=== PATIENT | female | born 1965 | race Caucasian/White ===

== ENCOUNTER 2020-12-19 15:44 | Emergency (ER) | payer SELFPAY ==
[2020-12-19 16:04] VITALS: BP 121/76; PULSE 85; RESP 16; TEMP 36.4; O2SAT 97
--- NOTE | 2020-12-19 16:45 | RT.EKG_ITS ---
APPROVED REPORT Exam: Resting ECG Reason for Exam: tick borne illness Patient Location: E HR:77 bpm ECG Measurements Heart Rate 77 AXIS IL 155 P 57 QRSd 86 QRS -3 QT 391 T 40 QTc 443 Conclusion Sinus rhythm...normal P axis, V-rate 60- 99 Low voltage, extremity and precordial leads...extremity<0.5mV, precordial<1.0mV. Sinus. No STEMI. I have reviewed and interpreted ECG and agree with software generated interpretation.
--- NOTE | 2020-12-19 16:53 | W.ED.GENAD ---
Discharge Plan Disposition Patient Disposition: HOME Condition: Stable Discharge Details Clinical Impression: Tick bite of abdomen Primary Care Provider: None,None ED Provider: Ann-Marie Deras Home Meds and New Rx's Prescriptions: New doxycycline hyclate 100 mg tablet 100 mg PO BID 21 Days Qty: 42 RF: 0 Discharge Instructions Instructions: Tick Bite (ED) Additional Instructions: Your symptoms are concerning for tick born illness. Please take the Doxycycline as prescribed, even if symptoms improve, please take the entire course. We have held off on testing as it would likely be falsely negative at this time. Your EKG is without block. Please encourage hydration, Tylenol and/or ibuprofen as needed for discomfort. Please follow up with primary care in 2 weeks when you return home. If you develop any new/worsening symptoms please seek care urgently once again. Medical Decision Making Patient is a pleasant 55 year old female presenting today with concern for general aches, fatigue, chills after tick bite 10 days ago. She states she is not sure what type of tick it was, how long it was embedded. HOwever, states that it was engorged/enlarged. She states head is still embedded with some surrounding erythema. She has not had any documented fevers. Reports that she was seen at urgent care locally and no abx were started. On exam, patient appears nontoxic. Her VS are WNL. No nuchal rigidity. No nerve palsy. Lungs are clear, normal cardiac exam. She has tick bite on abdomen, small retained piece noted, appears irritated, patient states she has been digging at this. No erythema migrans. ECG was obtained to look for block, reviewed by Dr. Dhaliwal. No abnormality noted. Discussed with patient. She is too early to have blood tests be confirmatory. However, with her history, I am very concerned about tick born illness and will treat with Doxycycline. She resides in [place], is returning in 2 weeks and will f/u with PCP then. Return precautions discussed, all of her questions and concerns were addressed, she is in agreement with this plan. HPI General Mode of arrival: ambulatory. Date/Time Provider Initiated Documentation: 12/19/20 16:27. Limitations to Documentation: no limitations. Information obtained by: patient and RN notes reviewed. History of Present Illness 55 year old F presents to the emergency department with the chief complaint of body aches, fatigue, DOMINGUEZ, chills, described as mild, with intensity rated at 2. Quality is described as aching, Patient started experiencing this day(s) and it has been constant. Medication improves symptom(s), No exacerbating factors reported . Patient notes fever/chills, headaches and rash (area of irritation around tick bite); denies chest pain, cough, diaphoresis, loss of appetite, nausea/vomiting, shortness of breath and weakness. Patient did receive the following treatments prior to arrival, NSAID Related Data Home Medications Medication Instructions Recorded Confirmed doxycycline hyclate 100 mg PO BID 21 Days #42 tab 12/19/20 Previous Rx's Medication Instructions Recorded doxycycline hyclate 100 mg PO BID 21 Days #42 tab 12/19/20 Allergies Allergy/AdvReac Type Severity Reaction Status Date / Time Penicillins Allergy Unverified 12/19/20 16:10 General Stated Complaint: GenMedical STEVEN: 3 Review of Systems Constitutional Constitutional: Reports as per HPI, Reports chills, Reports fatigue and Reports headache(s) (mild DOMINGUEZ) Eyes Eyes: Denies change in vision ENT Ears, Nose, Mouth, and Throat: Denies vertigo, Reports headache(s) (mild DOMINGUEZ) and Denies disequilibrium Cardiovascular Cardiovascular: Reports as per HPI, Denies chest pain and Denies dyspnea Respiratory Respiratory: Reports as per HPI, Denies cough and Denies dyspnea Gastrointestinal Gastrointestinal: Denies abdominal pain, Denies change in bowel habits, Denies nausea and Denies vomiting Musculoskeletal Musculoskeletal: Reports myalgias Integumentary/Breasts Skin/Breast: Reports wounds (tick bite) Neurologic Neurologic: Denies abnormal movements, Denies abnormal speech, Denies confusion, Denies vertigo, Reports headache(s) (mild DOMINGUEZ), Denies localized weakness, Denies sensory deficit and Denies disequilibrium Psychiatric Psychiatric: Denies confusion Endocrine Endocrine: Reports fatigue PFSH Social History Smoking/Tobacco Use Status: Former Tobacco Use Smoking risk assessment performed?: Yes Alcohol Intake: current Alcohol Intake frequency: a few times a week Substance use type: does not use Do you feel safe at home: Yes Do you feel safe in your relationship?: Yes Exam Const General: cooperative, healthy appearing, comfortable and no acute distress Nutritional Appearance: average body habitus and well nourished Orientation: alert and awake [facility] Head: normal to inspection and normocephalic Ears: hearing grossly normal bilaterally General nose exam: external nose normal Face and sinus: normal facial exam Mouth: oral mucosae normal and lip normal Teeth and gingiva: dentition normal Eyes General: appearance normal, both eyes and all related structures Neck Neck: normal visual inspection, full ROM, no lymphadenopathy and no meningeal signs Resp Effort & Inspection: normal respiratory effort, able to speak in complete sentences and no respiratory distress Auscultation: clear to auscultation bilaterally Cardio Rate: regular rate Rhythm: regular rhythm Heart Sounds: S1 normal and S2 normal GI Abdomen image: 1. Area of tick bite with focal erythema around site of bite Skin General skin exam: no rashes or lesions noted Neuro General: patient alert, patient awake and patient oriented x3 Cranial Nerves: CN's II-XI intact bilaterally Cognition: normal cognition Speech: speech normal Gait: normal gait Psych Appearance: grossly normal and well kempt Mental Status: mental status grossly normal Speech and Movement: speech and movement normal Course Vital Signs Vital signs: Vital Signs Temperature 36.4 C L 12/19/20 16:04 Pulse 85 12/19/20 16:04 Respiratory Rate 16 12/19/20 16:04 Blood Pressure 121/76 12/19/20 16:04 Pulse Oximetry 97 12/19/20 16:04 Temperature 36.4 C L 12/19/20 16:04 Temperature Source Tympanic 12/19/20 16:04 Pulse 85 12/19/20 16:04 Respiratory Rate 16 12/19/20 16:04 Respiratory Effort Non-Labored 12/19/20 16:09 Blood Pressure 121/76 12/19/20 16:04 Blood Pressure Position Sitting 12/19/20 16:04 Pulse Oximetry 97 12/19/20 16:04 Pain Level 2 12/19/20 16:04 PAWSS Have you Been Recently Intoxicated or Drunk Within the Last 30 days?: No Have you Ever Experienced Previous Episodes of Alcohol Withdrawal?: No Have you ever Experienced Withdrawal Seizures?: No Have you ever Experienced Delirium Tremens(DT)s?: No Have you ever undergone Alcohol Rehabilitation Treatment (i.e, inpt ot outpatient treatment programs)?: No Have you ever Experienced Blackouts?: No Have you ever Combined Alcohol with other Downers within the last 90 days?: No Have you ever Combined Alcohol with any other Substance of Abuse during the last 90 days?: No Positive Blood Alcohol level on Presentation? [PCS.BAL]: No Evidence of Increased Autonomic Activity (i.e. HR>120, tremor, sweating, agitation, nausea)?: No Result: 0
[2020-12-19 17:19] VITALS: BP 121/76; PULSE 85; RESP 16; TEMP 36.4; O2SAT 97
== END 2020-12-19 17:24 | disposition home or self-care (01) ==
PROVIDERS: Emergency Provider Physician Assistant
DX: S30.861A Insect bite (nonvenomous) of abdominal wall, initial encounter (principal); W57.XXXA Bitten or stung by nonvenomous insect and other nonvenomous arthropods, initial encounter; R53.83 Other fatigue; R68.83 Chills (without fever)
CPT/HCPCS: 93005; 99283; 93010